=== PATIENT | male | born 1955 | race Caucasian/White ===

== ENCOUNTER → 2024-09-13 15:44 | Outpatient (REF) | payer BC, MEDICARE, SELFPAY | LOC: MRI 3T 15:44 | PROVIDERS: ATTENDING PHYSICIAN Specialist; FAMILY PHYSICIAN Family Medicine; REFERRING PHYSICIAN Radiology Diagnostic Radiology | DX: R97.20 Elevated prostate specific antigen [PSA] (principal); Z13.5 Encounter for screening for eye and ear disorders | CPT/HCPCS: 70030; 72197; A9575 ==

== ENCOUNTER → 2025-05-18 12:43 | Outpatient (REF) | payer MEDICARE, SELFPAY | LOC: HWRAD 12:43 | PROVIDERS: ATTENDING PHYSICIAN Specialist; FAMILY PHYSICIAN Family Medicine | DX: R31.0 Gross hematuria (principal) | CPT/HCPCS: 76775 ==